=== PATIENT | male | born 1995 | race African-American/Black ===

== ENCOUNTER 2017-10-14 21:46 | Emergency (ER) | payer OTHER ==
[~2017-10-14] VITALS: Ht 185.4 cm; Wt 99.8 kg
--- NOTE | 2017-10-14 21:59 | NUR ---
MD GUTHRIE AT BEDSIDE FOR MSE
--- NOTE | 2017-10-14 22:06 | NUR ---
Patient discharged to home in stable conditon. Written and verbal after care instructions given. Patient verbalizes understanding of instructions. Patient able to ambulate unassisted with a steady gait. Patient left with all personal belongings.
[2017-10-14 22:10] VITALS: BP 118/68
== END 2017-10-14 22:06 | disposition home or self-care (01) ==
LOC: ER 21:48
DX: T16.2XXA Foreign body in left ear, initial encounter (principal); X58.XXXA Exposure to other specified factors, initial encounter; Y93.89 Activity, other specified; Y92.89 Other specified places as the place of occurrence of the external cause; Y99.8 Other external cause status
CPT/HCPCS: A4663